=== PATIENT | female | born 1995 | race Caucasian/White ===

== ENCOUNTER 2018-08-01 11:36 | Inpatient (IN) ==
[2018-08-02] MEDS ORDERED: TUBERSOL ID ONE (11:23)
[2018-08-02] MEDS ORDERED: MAALOX PLUS LIQUID PO PRN (11:23)
[2018-08-02] MEDS ORDERED: SENOKOT PO PRN (11:23)
[2018-08-02] MEDS ORDERED: DULCOLAX PR PRN (11:23)
[2018-08-02] MEDS ORDERED: ZOFRAN IV PRN (11:23)
[2018-08-02] MEDS ORDERED: NICOTINE GUM BUCCAL PRN (11:23)
[2018-08-02] MEDS ORDERED: IMODIUM PO PRN ×2 (11:23)
[2018-08-02] MEDS ORDERED: TYLENOL PO PRN (11:23)
[2018-08-02] MEDS ORDERED: MOTRIN PO PRN (11:23)
[2018-08-02] MEDS ORDERED: D5W 1,000 ML IV PRN (11:23)
[2018-08-02] MEDS ORDERED: DESYREL PO PRN (11:23)
[2018-08-02] MEDS ORDERED: PHENOBARBITAL IV PRN (11:23)
[2018-08-02] MEDS ORDERED: ZOFRAN ODT PO PRN (11:23)
[2018-08-02] MEDS ORDERED: ZOFRAN IM PRN (11:23)
[2018-08-02 11:53] LABS: HEMATOCRIT 40.6 % (37.0-47.0); HEMOGLOBIN 13.5 g/dL (12.0-16.0); MCH 30.8 PG (27-31); MCHC 33.3 g/dL (33-37); MCV 92.5 FL (81-99); MPV 11.5 FL (7.4-10.4); RBC 4.39 XMIL (4.2-5.4); RDW 13.5 % (11.5-14.5); WBC 8.11 X1000 (4.8-10.8)
[2018-08-02 12:05] LABS: INR 0.9; PROTIME 12.6 Seconds (11.0-16.0)
[2018-08-02 12:07] LABS: URINE SOURCE CLEAN CATCH
[2018-08-02 12:12] LABS: BILIRUBIN URINE NEGATIVE (NEGATIVE); BLOOD URINE NEGATIVE (NEGATIVE); COLOR YELLOW; GLUCOSE URINE NEGATIVE (NEGATIVE); KETONE URINE TRACE mg/dL (NEGATIVE); LEUKOCYTES URINE TRACE (NEGATIVE); NITRITE URINE NEGATIVE (NEGATIVE); PROTEIN URINE TRACE mg/dL (NEGATIVE); SP GRAVITY URINE 1.015; UROBILINOGEN URINE NORMAL
[2018-08-02 12:15] LABS: CLARITY CLEAR (CLEAR); URINE BACTERIA 2+ /HFP; URINE CAST NONE SEEN /LPF; URINE CRYSTAL NONE SEEN /HPF; URINE EPITHELIAL CELLS <10 /HPF (<10); URINE RBC <10 /HPF (<10); URINE WBC <10 /HPF (<10); URINE YEAST PRESENT /HPF
[2018-08-02 12:18] LABS: UR AMPHETAMINES QUAL PRESUMPTIVE POSITIVE (NONE DETECT); UR BARBITUATES QUAL NONE DETECTED (NONE DETECT); UR BENZODIAZEPIN QUAL NONE DETECTED (NONE DETECT); UR CANNABINOIDS QUAL NONE DETECTED (NONE DETECT); UR COCAINE QUAL NONE DETECTED (NONE DETECT); UR METHADONE QUAL NONE DETECTED (NONE DETECT); UR METHAMPHETAMINE QUAL NONE DETECTED (NONE DETECT); UR OPIATES QUAL NONE DETECTED (NONE DETECT); UR OXYCODONE QUAL NONE DETECTED (NONE DETECT); UR PCP QUAL NONE DETECTED (NONE DETECT); UR PROPOXYPHENE QUAL NONE DETECTED (NONE DETECT); UR TCA QUAL NONE DETECTED (NONE DETECT)
[2018-08-02 12:18] LABS: AGAP 9; ALBUMIN 3.8 g/dL (3.5-5.0); ALKALINE PHOSPHATASE 85 U/L (32-104); AMYLASE 35 U/L (20-200); BUN 12 mg/dL (8-22); CALCIUM 8.8 mg/dL (8.8-10.2); CHLORIDE 101 mmol/L (98-107); COSMO 278; CREATININE 0.6 mg/dL (0.5-0.9); ESTIMATED GFR > 60; GLUCOSE 107 mg/dL (70-104); GOT 24 U/L (10-30); GPT 26 U/L (10-36); LIPASE 20 U/L (13-60); POTASSIUM 4.1 mmol/L (3.5-5.1); SODIUM 139 mmol/L (136-145); TCO2 29 mmol/L (25-35); TOTAL PROTEIN 6.7 g/dL (6.3-8.3)
[2018-08-02] MEDS ORDERED: BENTYL PO PRN (13:07)
[2018-08-02] MEDS ORDERED: ATARAX PO PRN (13:07)
[2018-08-02] MEDS ORDERED: ROBAXIN PO PRN (13:07)
[2018-08-02] MEDS ORDERED: SINEMET 25/100 PO PRN (13:07)
[2018-08-02] MEDS ORDERED: LIBRIUM PO PRN (13:07)
[2018-08-02] MEDS: LIBRIUM PO SCH ×2 (13:49→20:33)
[2018-08-02] MEDS: SEROQUEL PO PRN (20:38)
[2018-08-02] MEDS: NICODERM PATCH TD PRN (20:39)
[2018-08-03] MEDS: LIBRIUM PO SCH ×4 (02:14→22:04)
[2018-08-03] MEDS: PROTONIX PO SCH (06:16)
[2018-08-03] MEDS: FOLIC ACID PO SCH (08:45)
[2018-08-03] MEDS: THERA M PLUS PO SCH (08:45)
[2018-08-03] MEDS: VITAMIN B-1 PO SCH (08:45)
--- NOTE | 2018-08-03 23:35 | PROGRESS NOTE ---
DATE: 08/03/2018 SUBJECTIVE: Patient notes that overall she is feeling a little bit better. Muscle aches have improved. Denies any nausea, vomiting. Denies any fevers or chills. PHYSICAL EXAMINATION: Vital Signs: Reviewed and stable. Temperature 97 degrees, pulse 91, respiratory 18, BP 119/67. General: Patient is awake, alert. She is in no current respiratory distress. HEENT: Normocephalic. Neck: Supple. CARDIOVASCULAR: Regular rate. Chest: Clear. Abdomen: Soft. Extremities: Moves all extremities. ASSESSMENT: 1. Nausea, vomiting. 2. Abdominal pain. 3. Myalgias. 4. Paresthesias. 5. Paroxysmal sweating. 6. Polysubstance use and abuse. PLAN: We will continue patient in the hospital. Continue Librium taper. Hopefully, she can be discharged home over the next day or two. cc: Ángel Jerome MD
[2018-08-04] MEDS: PROTONIX PO SCH ×2 (05:56→06:32)
[2018-08-04] MEDS: LIBRIUM PO SCH ×4 (05:56→16:59)
[2018-08-04] MEDS: FOLIC ACID PO SCH (09:42)
[2018-08-04] MEDS: THERA M PLUS PO SCH (09:42)
[2018-08-04] MEDS: VITAMIN B-1 PO SCH (09:42)
--- NOTE | 2018-08-04 19:09 | PROGRESS NOTE ---
DATE: 08/04/2018 SUBJECTIVE: The patient notes that she is feeling a lot better today. She is still sleepy. Denies any fevers or chills. Notes her anxiety has improved, as has her skin crawling and paresthesias. OBJECTIVE: Temperature 97.9 degrees, pulse 102, respiratory 18, BP 120/59. General: The patient is awake, alert, very pleasant to talk with. No current respiratory distress. HEENT: Normocephalic. Neck supple. CV: Regular rate. Chest clear. Abdomen soft, nondistended. Extremities: Moves all extremities. Neurologic: No changes. ASSESSMENT: 1. Nausea and vomiting. 2. Abdominal pain. 3. Myalgias. 4. Polysubstance use and abuse. 5. Paresthesias. PLAN: We will continue the patient in the hospital. Continue symptomatic treatment as needed. We will continue to wean Librium. Hopefully home over the next 1 or 2 days. cc: Ángel Jerome MD
[2018-08-04] MEDS: NICODERM PATCH TD PRN (19:56)
[2018-08-04] MEDS: SEROQUEL PO PRN (22:30)
[2018-08-05] MEDS: PROTONIX PO SCH (06:26)
[2018-08-05] MEDS ORDERED: REVIA PO SCH (09:00)
[2018-08-05] MEDS ORDERED: LIBRIUM PO SCH (09:00)
[2018-08-05] MEDS ORDERED: SUBOXONE 2 MG/0.5 MG SL SCH (09:00)
[2018-08-05] MEDS: FOLIC ACID PO SCH (09:57)
[2018-08-05] MEDS: VITAMIN B-1 PO SCH (09:58)
[2018-08-05] MEDS: THERA M PLUS PO SCH (09:58)
[2018-08-05 11:35] VITALS: BP 128/76
[2018-08-05] MEDS: NICODERM PATCH TD PRN (14:55)
--- NOTE | 2018-08-06 18:04 | DISCHARGE SUMMARY ---
ADMISSION DATE: 08/02/2018 DISCHARGE DATE: 08/05/2018 DISCHARGE DIAGNOSES: 1. Nausea and vomiting. 2. Abdominal pain. 3. Myalgias. 4. Paresthesias. 5. Paroxysmal sweating. 6. Polysubstance use and abuse. 7. Chronic tobacco abuse. CONSULTATIONS: None. PROCEDURES: None. BRIEF HOSPITAL COURSE: The patient is a 22-year-old female who presented to [facility] secondary to nausea, vomiting, abdominal pain, myalgias and paresthesias. She notes that she has been using abusing polysubstance to include amphetamine, alcohol occasionally and cigarettes. We admitted her to the hospital and placed in the usual fashion on Librium taper. Thankfully, she had an uneventful hospital course and on discharge she is awake, alert, she is feeling much better. She will be discharged home. DISPOSITION: Discussed with the patient the use of naltrexone. Even though it is not the most ideal for amphetamines, it does seem to help. I discussed with her, however, that it is only a life raft and it can help her float while she [*]swim to shore, but that she has to stay away from sharks. Otherwise the raft will certainly get a hole and she will sink back down that same hole. The patient understands, and understands that she needs outpatient life counseling as well as change of her life habits. She needs to avoid all persons, places, situations where she has been using and abusing the past. Greater than 30 minutes was spent in total care. cc: Ángel Jerome MD
== END 2018-08-05 16:18 | disposition home or self-care (01) | DRG 897 ==
LOC: P.MEDSURG 08-02 10:42
PROVIDERS: ADMIT Family Medicine; ATTEND Family Medicine
CPT/HCPCS: 80053; 80104; 80301; 80305; 80307; 80320; 81001; 82055; 82150; 83690; 84703; 85027; 85610; 86580; A9270; G0431; G0434; G0477; G0480; G6040